=== PATIENT | female | born 1995 | race Caucasian/White ===

== ENCOUNTER 2023-01-23 07:11 | Inpatient (IN) ==
[2023-01-23] MEDS ORDERED: Buffered Lidocaine 1% SYRIN 1 ml ONE (08:18)
[2023-01-23] MEDS ORDERED: Lactated Ringers 1000 ml BAG 1,000 ML IV ONE ×2 (08:47→16:49)
[2023-01-23 08:51] LABS: ABS Basophils 0.1 10^3/uL (0.0-0.1); ABS Lymphocytes 1.1 10^3/uL (1.0-4.8); ABS Monocytes 0.7 10^3/uL (0.0-0.9); ABS Neutrophils 15.8 10^3/uL (1.5-7.6); Eosinophil % 0.2 %; Hematocrit 38.5 % (35-45); Hemoglobin 13.2 g/dL (11.5-14.3); Lymphocyte % 6.3 %; Mean Corpuscular Hemoglobin 31.2 pg (27-33); Mean Corpuscular Hgb Conc 34.2 g/dL (31-36); Mean Corpuscular Volume 91.1 fL (80-97); Mean Platelet Volume 10.6 fL (7.5-11.2); Platelet Count 147 10^3/uL (150-450); Red Blood Count 4.23 10^6/uL (3.63-4.92); White Blood Count 17.6 10^3/uL (3.8-11.8)
[2023-01-23 08:53] LABS: Urine Appearance Clear; Urine Bilirubin Negative (Negative); Urine Blood Negative (Negative); Urine Color Yellow; Urine Glucose Negative (Negative); Urine Ketones Negative (Negative); Urine Nitrite Negative (Negative); Urine Protein Negative (Negative); Urine Specific Gravity 1.013 (1.002-1.030); Urine Urobilinogen Negative (Negative)
[2023-01-23] MEDS: Buffered Lidocaine 1% SYRIN 1 ml INTRADERM ONE ×2 (09:06→15:13)
[2023-01-23 09:08] LABS: Urine TP Concentration 7 mg/dL; Urine TP Creat Ratio 0.12 mg/mg
[2023-01-23 09:34] LABS: Albumin 3.7 g/dL (3.2-5.2); Calcium 8.9 mg/dL (8.6-10.3); Potassium 3.8 mmol/L (3.5-5.0); Total Bilirubin 0.3 mg/dL (0.2-1.0)
[2023-01-23 09:40] LABS: Albumin/Globulin Ratio 1.6 (1-3); Creatinine, Serum 0.52 mg/dL (0.51-0.95); Globulin 2.3 g/dL (2-4); Uric Acid 4.6 mg/dL (2.3-6.6); eGFR CKD-EPI 132.1 (>60)
[2023-01-23] MEDS ORDERED: Oxytocin in LR 20,000 MILLI.UNIT/1,000 ML BAG IV SCH (14:05)
[2023-01-23] MEDS: Lactated Ringers 1000 ml BAG 1,000 ML IV SCH ×2 (15:13→18:37)
[2023-01-23] MEDS ORDERED: Lidocaine 1% w EPI 1:200,000 SDV 30 ML VIAL ONE (15:44)
[2023-01-23] MEDS ORDERED: OBEPIDURAL (200 ML) 200 ML EPIDURAL ONE (15:44)
[2023-01-23] MEDS ORDERED: Lactated Ringers 1000 ml BAG 500 ML IV PRN ×2 (16:49)
[2023-01-23] MEDS ORDERED: Phenylephrine 40 mcg/mL 10mL (400mcg) SYRINGE IV PUSH PRN ×2 (16:49)
[2023-01-23] MEDS ORDERED: Sodium Citrate/Citric Acid LIQ 15 ML UDC PO PRN (16:49)
[2023-01-23] MEDS ORDERED: OBEPIDURAL (200 ML) 200 ML EPIDURAL SCH (17:00)
[2023-01-23] MEDS ORDERED: Lactated Ringers 1000 ml BAG 1,000 ML IV SCH (17:00)
[2023-01-23] MEDS ORDERED: Calcium Carb (TUMS) 500 mg CHEW TAB PO PRN (17:13)
[2023-01-23] MEDS ORDERED: Bupivacaine 0.25% SDV PF 10 ML VIAL INJ ONE (19:48)
[2023-01-23] MEDS ORDERED: Oxytocin 10 UNITS/ML 1 ML VIAL IM ONE (23:51)
[2023-01-24] MEDS: Dibucaine 1% OINT 28.35 GM TUBE PR PRN (00:24)
[2023-01-24] MEDS: Witch Hazel PAD JAR TOPICAL PRN (00:24)
[2023-01-24] MEDS ORDERED: Lidocaine 1% VIAL 10 MG/ML 30 ML VIAL ONE (03:23)
[2023-01-24 07:47] LABS: Urine Benzodiazepine Screen None Detected (None Detect); Urine Opiates Screen None Detected (None Detect)
[2023-01-24 08:14] LABS: ABS Basophils 0.1 10^3/uL (0.0-0.1); ABS Eosinophils 0.1 10^3/uL (0.0-0.5); ABS Lymphocytes 1.5 10^3/uL (1.0-4.8); ABS Monocytes 0.8 10^3/uL (0.0-0.9); ABS Nucleated RBC 0.01 10^3/ul; Eosinophil % 0.4 %; Hematocrit 29.9 % (35-45); Hemoglobin 10.7 g/dL (11.5-14.3); Mean Corpuscular Hemoglobin 32.7 pg (27-33); Mean Corpuscular Hgb Conc 35.8 g/dL (31-36); Mean Corpuscular Volume 91.3 fL (80-97); Mean Platelet Volume 10.3 fL (7.5-11.2); Platelet Count 124 10^3/uL (150-450); Red Blood Count 3.28 10^6/uL (3.63-4.92); White Blood Count 15.4 10^3/uL (3.8-11.8)
[2023-01-25 08:21] VITALS: BP 123/76
[2023-01-25] MEDS: Dibucaine 1% OINT 28.35 GM TUBE PR PRN (10:51)
[2023-01-25] MEDS: Witch Hazel PAD JAR TOPICAL PRN (10:51)
== END 2023-01-25 11:48 | disposition home or self-care (01) | DRG 807 ==
LOC: MCHOBOUT 07:11 → MCHOB 08:14
PROVIDERS: ADMIT Midwife; ATTEND Midwife